=== PATIENT | male | born 1980 | race American Indian/Alaskan Native ===

== ENCOUNTER 2018-12-18 21:04 | Emergency (ER) | payer SELFPAY ==
--- NOTE | 2018-12-18 21:11 | Emergency Department Report ---
ED Chest Pain HPI - General Stated Complaint: CHEST PAIN Time Seen by Provider: 12/18/18 21:08 Source: patient, family, EMS Limitations: No Limitations - History of Present Illness Initial Comments: Mr. Garcia is a pleasant healthy 38 yo male who presents with severe sharp chest pain today 1-2 hours after eating. Sharp pain radiating to "my heart and left arm". +nausea/vomiting +dyspnea. Now with hiccups. Has Had "really bad heartburn" for a long while. Self-treats with baking soda. Mr. Garcia states, "I smoke reefer as much as I can." MD Complaint: chest pain -: Gradual, hour(s) (3) Onset: during rest Severity: severe Quality: sharp Consistency: constant Improves With: nothing Worsens With: nothing re: nausea, vomting, dyspnea Other Symptoms: burping. denies: cough, fever, syncope, rash, acid taste in mouth, leg swelling, palpitations - Related Data Previous Rx's Medication Instructions Recorded Last Taken Type Amoxicillin 2 tab PO BID 10 Days #40 capsule 12/18/18 Unknown Rx Clarithromycin 500 mg PO BID 10 Days #20 tablet 12/18/18 Unknown Rx Omeprazole 40 mg PO DAILY 30 Days #30 12/18/18 Unknown Rx capsule. Allergies Allergy/AdvReac Type Severity Reaction Status Date / Time No Known Allergies Allergy Unverified 12/18/18 21:21 Heart Score - HEART Score History: Slightly suspicious EKG: Normal Age: < 45 Risk factors: No known risk factors Troponin: < normal limit HEART Score: 0 ED Review of Systems ROS: Stated complaint: CHEST PAIN Other details as noted in HPI Comment: All other systems reviewed and negative Constitutional: denies: fever, malaise Respiratory: shortness of breath. denies: cough Cardiovascular: chest pain Gastrointestinal: nausea, vomiting ED Past Medical Hx - Past Medical History Previous Medical History?: No - Surgical History Past Surgical History?: No - Family History Family history: other (COPD no hx of CAD ) - Social History Smoking Status: Never Smoker Substance Use Type: Alcohol (social), Marijuana (daily) - Medications Home Medications: Home Medications Medication Instructions Recorded Confirmed Last Taken Type Amoxicillin 2 tab PO BID 10 Days #40 capsule 12/18/18 Unknown Rx Clarithromycin 500 mg PO BID 10 Days #20 tablet 12/18/18 Unknown Rx Omeprazole 40 mg PO DAILY 30 Days #30 12/18/18 Unknown Rx capsule. ED Physical Exam - General General appearance: alert, in no apparent distress, other (hiccups +vomiting constantly spitting up) - Head Head exam: Present: atraumatic, normocephalic - Eye Eye exam: Present: normal appearance - ENT ENT exam: Present: mucous membranes moist - Neck Neck exam: Present: normal inspection, full ROM. Absent: tenderness, meningismus - Respiratory Respiratory exam: Present: normal lung sounds bilaterally. Absent: respiratory distress, wheezes, rales, rhonchi - Cardiovascular Cardiovascular Exam: Present: regular rate, normal rhythm, normal heart sounds. Absent: systolic murmur, diastolic murmur, rubs, gallop - GI/Abdominal GI/Abdominal exam: Present: soft, normal bowel sounds. Absent: distended, tenderness, guarding, rebound - Rectal Rectal exam: Present: deferred - Extremities Exam Extremities exam: Present: normal inspection - Back Exam Back exam: Present: normal inspection - Neurological Exam Neurological exam: Present: alert, oriented X3 - Psychiatric Psychiatric exam: Present: normal affect, normal mood - Skin Skin exam: Present: warm, dry, intact, normal color. Absent: rash ED Course Vital Signs 12/18/18 12/18/18 12/18/18 21:06 21:15 21:16 Temperature 97.5 F L Pulse Rate 53 L 55 L Respiratory 17 11 L Rate Blood Pressure 146/89 O2 Sat by Pulse 100 100 Oximetry 12/18/18 12/18/18 12/18/18 21:29 21:48 22:00 Temperature Pulse Rate 59 L Respiratory 22 14 Rate Blood Pressure 146/89 127/74 O2 Sat by Pulse 100 100 Oximetry 12/18/18 12/18/18 12/18/18 22:16 22:30 22:45 Temperature Pulse Rate 61 58 L 57 L Respiratory 22 12 8 L Rate Blood Pressure 130/77 118/76 122/86 O2 Sat by Pulse 100 98 99 Oximetry 12/18/18 12/18/18 12/18/18 23:00 23:15 23:30 Temperature Pulse Rate 54 L 56 L 59 L Respiratory 12 14 15 Rate Blood Pressure 126/78 122/71 116/66 O2 Sat by Pulse 100 100 100 Oximetry ED Medical Decision Making - Lab Data Result diagrams: 12/18/18 21:47 12/18/18 21:47 Laboratory Results - last 24 hr 12/18/18 12/18/18 12/18/18 21:47 21:47 21:47 WBC 16.2 H RBC 4.87 Hgb 14.5 Hct 45.4 MCV 93 MCH 30 MCHC 32 RDW 14.3 Plt Count 250 Lymph % (Auto) 15.8 Evans % (Auto) 6.2 Eos % (Auto) 0.3 Baso % (Auto) 0.4 Lymph # 2.6 Evans # 1.0 H Eos # 0.1 Baso # 0.1 Seg Neutrophils % 77.3 H Seg Neutrophils # 12.5 H Sodium 139 Potassium 4.1 Chloride 103.8 Carbon Dioxide 24 Anion Gap 15 BUN 14 Creatinine 1.1 Estimated GFR > 60 BUN/Creatinine Ratio 13 Glucose 109 H Calcium 9.4 Troponin T < 0.010 Lipase 42 - EKG Data 12/18/18 21:14 EKG obtained 2110 Sinus bradycardia rate 50 bpm normal axis normal intervals no ST elevation no signs of ischemia or pericarditis - Radiology Data Radiology results: report reviewed Chest x-ray: No acute process - Medical Decision Making Mr. Garcia presents with chest pain, epigastric pain and belching. Strongly suspect severe esophagitis versus peptic ulcer disease. Prescribed triple H. pylori therapy with amoxicillin clarithromycin and omeprazole. He plans to obtain health insurance in 1 month. Consequently should be able to receive specialty care by head of digital. Referred to outpatient physician and GI specialist. He did inform me that his mother had such severe reflux that she required Hunter procedure. Elevated WBC nonspecific without PNA, peritonitis, esophageal rupture. Critical care attestation.: If time is entered above; I have spent that time in minutes in the direct care of this critically ill patient, excluding procedure time. ED Disposition Clinical Impression: GERD (gastroesophageal reflux disease), PUD (peptic ulcer disease) Disposition: DC-01 TO HOME OR SELFCARE Is pt being admited?: No Does the pt Need Aspirin: No Condition: Stable Instructions: Diet for Ulcers and Gastritis (ED), Gastroesophageal Reflux Disease (ED) Prescriptions: Amoxicillin 2 tab PO BID 10 Days #40 capsule Clarithromycin 500 mg PO BID 10 Days #20 tablet Omeprazole 40 mg PO DAILY 30 Days #30 capsule.dr Forms: Work/School Release Form(ED)
[2018-12-18] MEDS ORDERED: ZOFRAN IV ONE (21:12)
[2018-12-18] MEDS ORDERED: MORPHINE IV ONE (21:12)
[2018-12-18] MEDS ORDERED: PEPCID IV ONE (21:12)
[2018-12-18 21:55] LABS: Basophils # (Auto) 0.1 K/mm3 (0.0-0.1); Basophils % (Auto) 0.4 % (0.0-1.8); Eosinophils # (Auto) 0.1 K/mm3 (0.0-0.4); Eosinophils % (Auto) 0.3 % (0.0-4.3); Hematocrit 45.4 % (35.5-45.6); Hemoglobin 14.5 gm/dl (11.8-15.2); Lymphocytes # (Auto) 2.6 K/mm3 (1.2-5.4); Lymphocytes % (Auto) 15.8 % (13.4-35.0); Mean Corpuscular HGB Conc 32 % (32-34); Mean Corpuscular Volume 93 fl (84-94); Monocytes % (Auto) 6.2 % (0.0-7.3); Platelet Count 250 K/mm3 (140-440); Red Blood Count 4.87 M/mm3 (3.65-5.03); Red Cell Distribution Width 14.3 % (13.2-15.2)
[2018-12-18 22:10] LABS: BUN/Creatinine Ratio 13; Blood Urea Nitrogen 14 mg/dL (9-20); Calcium 9.4 mg/dL (8.4-10.2); Hemolysis Index 16
--- NOTE | 2018-12-18 22:31 | XRay Report ---
FINAL REPORT PROCEDURE: XR CHEST 1V AP TECHNIQUE: Chest radiograph anteroposterior view. CPT 73723 HISTORY: Chest Pain COMPARISON: No prior studies are available for comparison. FINDINGS: Heart: Normal. Mediastinum/Vessels: Normal. Lungs/Pleural space: No infiltrate, effusion, or pneumothorax. Bony thorax: No acute osseous abnormality. Life support devices: None. IMPRESSION: No radiographic evidence of acute cardiopulmonary abnormality.
[2018-12-18 23:42] VITALS: BP 116/66
== END 2018-12-19 00:13 | disposition home or self-care (01) ==
LOC: ED 21:04
DX: K21.9 Gastro-esophageal reflux disease without esophagitis (principal); K27.9 Peptic ulcer, site unspecified, unspecified as acute or chronic, without hemorrhage or perforation; F12.10 Cannabis abuse, uncomplicated
CPT/HCPCS: 36415; 71045; 80048; 83690; 84484; 85025; 93005; 93010; 96374; 96375; 99284; J2270; J2405

== ENCOUNTER 2019-05-31 09:39 | Emergency (ER) | payer OTHER ==
[2019-05-31] MEDS ORDERED: MORPHINE IM ONE (10:04)
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
[2019-05-31] MEDS ORDERED: ULTRAM PO ONE (12:23)
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
[2019-05-31] MEDS ORDERED: IBUPROFEN PO ONE (16:55)
[2019-05-31 17:37] VITALS: BP 127/72
== END 2019-05-31 17:35 | disposition home or self-care (01) ==
LOC: ED 09:39
DX: M50.20 Other cervical disc displacement, unspecified cervical region (principal); J45.909 Unspecified asthma, uncomplicated; F12.10 Cannabis abuse, uncomplicated; Z79.899 Other long term (current) drug therapy; Z79.1 Long term (current) use of non-steroidal anti-inflammatories (NSAID); V47.5XXA Car driver injured in collision with fixed or stationary object in traffic accident, initial encounter; Y93.89 Activity, other specified; Y92.410 Unspecified street and highway as the place of occurrence of the external cause; Y99.8 Other external cause status
CPT/HCPCS: 70450; 71046; 72125; 72170; 96372; 99284; J2270

== ENCOUNTER 2019-11-04 07:27 | Emergency (ER) | payer MEDICAID, OTHER ==
[2019-11-04] MEDS ORDERED: ASPIRIN 325 MG TAB PO ONE (07:41)
--- NOTE | 2019-11-04 08:29 | XRay Report ---
CHEST 2 VIEWS INDICATION: Chest Pain. COMPARISON: 12/18/2018. FINDINGS: Support devices: None. Heart: Within normal limits. Lungs/Pleura: No acute air space or interstitial disease. No significant pleural effusion. IMPRESSION: No acute findings. Signer Name: Yunior Cox MD Signed: 11/04/2019 8:25 AM Workstation Name: [id number]
[2019-11-04] MEDS ORDERED: IBUPROFEN 800 MG TAB PO ONE (09:02)
[2019-11-04] MEDS ORDERED: predniSONE 20 MG TAB PO ONE (09:02)
[2019-11-04 09:05] VITALS: BP 104/69
--- NOTE | 2019-11-04 09:09 | Emergency Department Report ---
ED Fever HPI - General Chief Complaint: Chest Pain Stated Complaint: CHEST PAIN/BODY ACHES/DIZZY Time Seen by Provider: 11/04/19 08:57 - History of Present Illness Initial Comments: cc: "I caught the flu from my daughter." HPI: Mr. Garcia is a 39 yo male with hx of asthma and marijuana abuse who presents with fever, dry cough, body aches fro the past day. Daughter has been diagnosed with the flu. He wanted to come to the ED in order to prevent a severe asthma attack. No wheezing or shortness of breath. Denies chest pain. Timing/Duration: other (1) Fever Severity/Quality: greater than 102 F Associated Symptoms: cough, muscle aches ED Review of Systems ROS: Stated complaint: CHEST PAIN/BODY ACHES/DIZZY Other details as noted in HPI Comment: All other systems reviewed and negative Constitutional: chills, fever, malaise ENT: denies: ear pain, throat pain, congestion Respiratory: cough. denies: shortness of breath, wheezing Cardiovascular: denies: chest pain Gastrointestinal: nausea. denies: abdominal pain, vomiting Musculoskeletal: back pain ED Past Medical Hx - Past Medical History Previous Medical History?: Yes Hx Asthma: Yes - Surgical History Past Surgical History?: Yes Additional Surgical History: left shoulder - Family History Family history: asthma - Social History Smoking Status: Never Smoker Substance Use Type: Marijuana (4 times per day) - Medications Home Medications: Home Medications Medication Instructions Recorded Confirmed Last Taken Type Amoxicillin 2 tab PO BID 10 Days #40 capsule 12/18/18 Unknown Rx Clarithromycin 500 mg PO BID 10 Days #20 tablet 12/18/18 Unknown Rx Omeprazole 40 mg PO DAILY 30 Days #30 12/18/18 Unknown Rx capsule. Cyclobenzaprine HCl [Flexeril 5 MG 5 mg PO BID PRN #10 tab 05/31/19 Unknown Rx TAB] HYDROcodone/APAP 7.5-325 [[place] 1 each PO Q6HR PRN #15 tablet 05/31/19 Unknown Rx 7.5/325] Ibuprofen [Motrin] 800 mg PO Q8HR PRN #30 tablet 05/31/19 Unknown Rx predniSONE [Deltasone] 20 mg PO DAILY #15 tablet 05/31/19 Unknown Rx ALBUTEROL Inhaler (OR & NICU) 2 puff IH QID PRN #8.5 gram 11/04/19 Unknown Rx [ProAir HFA Inhaler] Oseltamivir [Tamiflu] 75 mg PO BID 5 Days #10 cap 11/04/19 Unknown Rx predniSONE [Deltasone] 3 tab PO QDAY 4 Days #12 tab 11/04/19 Unknown Rx ED Physical Exam - General Limitations: No Limitations General appearance: alert, in no apparent distress, other (appears nontoxic) - Head Head exam: Present: atraumatic, normocephalic - Eye Eye exam: Present: normal appearance. Absent: scleral icterus, conjunctival injection - ENT ENT exam: Present: mucous membranes moist. Absent: normal exam, normal orophraynx - Neck Neck exam: Present: normal inspection, full ROM. Absent: tenderness, meningismus - Respiratory Respiratory exam: Present: normal lung sounds bilaterally. Absent: respiratory distress, wheezes, rales, rhonchi - Cardiovascular Cardiovascular Exam: Present: regular rate, normal rhythm. Absent: systolic murmur, diastolic murmur, rubs, gallop - GI/Abdominal GI/Abdominal exam: Present: soft, normal bowel sounds. Absent: distended, tenderness, guarding, rebound - Rectal Rectal exam: Present: deferred - Extremities Exam Extremities exam: Present: normal inspection - Back Exam Back exam: Present: normal inspection, full ROM. Absent: tenderness, CVA tenderness (R), CVA tenderness (L), muscle spasm - Neurological Exam Neurological exam: Present: alert, oriented X3 - Psychiatric Psychiatric exam: Present: normal affect, normal mood - Skin Skin exam: Present: warm, dry, intact, normal color. Absent: rash ED Course Vital Signs 11/04/19 07:34 Temperature 101.1 F H Pulse Rate 99 H Respiratory 20 Rate Blood Pressure 95/48 O2 Sat by Pulse 98 Oximetry ED Medical Decision Making - Medical Decision Making Clinical diagnosis influenza: inital hypotension seen at triage not replicated. I do not suspect sepsis, shock, bacteremia rx: tamiflu, albuterol MDI, prednisone Critical care attestation.: If time is entered above; I have spent that time in minutes in the direct care of this critically ill patient, excluding procedure time. ED Disposition Clinical Impression: Influenza Disposition: DC-01 TO HOME OR SELFCARE Is pt being admited?: No Does the pt Need Aspirin: No Condition: Stable Instructions: Influenza (ED) Prescriptions: predniSONE [Deltasone] 3 tab PO QDAY 4 Days #12 tab ALBUTEROL Inhaler (OR & NICU) [ProAir HFA Inhaler] 2 puff IH QID PRN #8.5 gram PRN Reason: Shortness Of Breath Oseltamivir [Tamiflu] 75 mg PO BID 5 Days #10 cap Referrals: VON YI MD [Staff Physician] - 3-5 Days Forms: Work/School Release Form(ED)
== END 2019-11-04 09:17 | disposition home or self-care (01) ==
LOC: ED 07:27
DX: J11.1 Influenza due to unidentified influenza virus with other respiratory manifestations (principal); J45.909 Unspecified asthma, uncomplicated; F12.10 Cannabis abuse, uncomplicated; Z98.890 Other specified postprocedural states; Z79.1 Long term (current) use of non-steroidal anti-inflammatories (NSAID); Z79.2 Long term (current) use of antibiotics; Z79.899 Other long term (current) drug therapy
CPT/HCPCS: 71046; 93005; 93010; 99283; J7512

== ENCOUNTER 2020-06-12 17:15 | Emergency (ER) | payer MEDICAID ==
[2020-06-12 17:28] VITALS: BP 110/63
[2020-06-12] MEDS ORDERED: oxyCODONE /ACETAMINOPHEN 5-325MG TAB PO ONE (18:53)
[2020-06-12] MEDS ORDERED: DIPHtheria,PERTUSSIS(ACELL),TETANUS VACCINE/PF 0.5 ML VIAL IM ONE (18:53)
--- NOTE | 2020-06-12 19:29 | Emergency Department Report ---
- General Chief Complaint: Extremity Injury, Upper Stated Complaint: LEFT HAND FINGER CUT Time Seen by Provider: 06/12/20 18:31 Source: patient Mode of arrival: Ambulatory Limitations: No Limitations - History of Present Illness Initial Comments: pt is a 39 yo male who presents to the ED with c/o a laceration to the left hand that occurred just LO[employer]ANG[employer]. he states he was using a razor blade knife to cut something off of his lawnmower when it accidentally slipped and cut his hand. bleeding is controlled by gauze dressing and tape. he denies any numbness or weakness. he is able to move the digits. no pmhx. no allergies to meds. pt is unsure of last tetanus immunization - Related Data Previous Rx's Medication Instructions Recorded Last Taken Type Amoxicillin 2 tab PO BID 10 Days #40 capsule 12/18/18 Unknown Rx Clarithromycin 500 mg PO BID 10 Days #20 tablet 12/18/18 Unknown Rx Omeprazole 40 mg PO DAILY 30 Days #30 12/18/18 Unknown Rx capsule. Cyclobenzaprine HCl [Flexeril 5 MG 5 mg PO BID PRN #10 tab 05/31/19 Unknown Rx TAB] HYDROcodone/APAP 7.5-325 [[place] 1 each PO Q6HR PRN #15 tablet 05/31/19 Unknown Rx 7.5/325] Ibuprofen [Motrin] 800 mg PO Q8HR PRN #30 tablet 05/31/19 Unknown Rx predniSONE [Deltasone] 20 mg PO DAILY #15 tablet 05/31/19 Unknown Rx Albuterol Mdi (or & Nicu Only) 2 puff IH QID PRN #8.5 gram 11/04/19 Unknown Rx [ProAir HFA Inhaler] Oseltamivir [Tamiflu] 75 mg PO BID 5 Days #10 cap 11/04/19 Unknown Rx predniSONE [Deltasone] 3 tab PO QDAY 4 Days #12 tab 11/04/19 Unknown Rx Allergies Allergy/AdvReac Type Severity Reaction Status Date / Time No Known Allergies Allergy Unverified 12/18/18 21:21 ED Review of Systems ROS: Stated complaint: LEFT HAND FINGER CUT Other details as noted in HPI Comment: All other systems reviewed and negative ED Past Medical Hx - Past Medical History Previous Medical History?: Yes Hx Asthma: Yes - Surgical History Past Surgical History?: Yes Additional Surgical History: left shoulder - Social History Smoking Status: Never Smoker Substance Use Type: Alcohol - Medications Home Medications: Home Medications Medication Instructions Recorded Confirmed Last Taken Type Amoxicillin 2 tab PO BID 10 Days #40 capsule 12/18/18 Unknown Rx Clarithromycin 500 mg PO BID 10 Days #20 tablet 12/18/18 Unknown Rx Omeprazole 40 mg PO DAILY 30 Days #30 12/18/18 Unknown Rx capsule. Cyclobenzaprine HCl [Flexeril 5 MG 5 mg PO BID PRN #10 tab 05/31/19 Unknown Rx TAB] HYDROcodone/APAP 7.5-325 [[place] 1 each PO Q6HR PRN #15 tablet 05/31/19 Unknown Rx 7.5/325] Ibuprofen [Motrin] 800 mg PO Q8HR PRN #30 tablet 05/31/19 Unknown Rx predniSONE [Deltasone] 20 mg PO DAILY #15 tablet 05/31/19 Unknown Rx Albuterol Mdi (or & Nicu Only) 2 puff IH QID PRN #8.5 gram 11/04/19 Unknown Rx [ProAir HFA Inhaler] Oseltamivir [Tamiflu] 75 mg PO BID 5 Days #10 cap 11/04/19 Unknown Rx predniSONE [Deltasone] 3 tab PO QDAY 4 Days #12 tab 11/04/19 Unknown Rx ED Physical Exam - General Limitations: No Limitations General appearance: alert, in no apparent distress - Head Head exam: Present: atraumatic, normocephalic - Eye Eye exam: Present: normal appearance - ENT ENT exam: Present: mucous membranes moist - Extremities Exam Extremities exam: Present: other (3 cm laceration present over the thenar emminence, no muscle tendon involvement, no foreign body, FROM of the left wrist, hand, and digits, he has FROM of the thumb including flexion, extension, thumb opposition, abduction and adduction, no snuffbox ttp, neurovascularly intact) - Neurological Exam Neurological exam: Present: alert, oriented X3 - Psychiatric Psychiatric exam: Present: normal affect, normal mood - Skin Skin exam: Present: warm, dry ED Course Vital Signs 06/12/20 17:26 Temperature 98.2 F Pulse Rate 78 Respiratory 20 Rate Blood Pressure 110/63 O2 Sat by Pulse 98 Oximetry ED Medical Decision Making - Medical Decision Making pt is a 39 yo male who presents to the ED with c/o a laceration to the left hand that occurred just [employer]ANG[employer]. he states he was using a razor blade knife to cut something off of his lawnmower when it accidentally slipped and cut his hand. bleeding is controlled by gauze dressing and tape. he denies any numbness or weakness. he is able to move the digits. no pmhx. no allergies to meds. pt is unsure of last tetanus immunization. vitals are normal. on exam: 3 cm laceration present over the thenar emminence, no muscle tendon involvement, no foreign body, FROM of the left wrist, hand, and digits, he has FROM of the thumb including flexion, extension, thumb opposition, abduction and adduction, no snuffbox ttp, neurovascularly intact. advised pt that we would give him a tetanus immunization and pain medication and thoroughly clean his wound and perform a laceration repair. pt was agreeable to plan. I was then advised by nurse that pt eloped from the emergency department prior to receiving medications and he did not have a full evaluation, did not have his wound cleaned, and did not have a laceration repair. Critical care attestation.: If time is entered above; I have spent that time in minutes in the direct care of this critically ill patient, excluding procedure time. ED Disposition Clinical Impression: Hand laceration Qualifiers: Encounter type: initial encounter Foreign body presence: unspecified Laterality: left Qualified Code(s): S61.412A - Laceration without foreign body of left hand, initial encounter Disposition: ELOPED Is pt being admited?: No Does the pt Need Aspirin: No Condition: Stable Referrals: PRIMARY CARE, [Primary Care Provider] - 3-5 Days
== END 2020-06-12 20:40 | disposition left against medical advice (07) ==
LOC: ED 17:15
DX: M79.642 Pain in left hand (principal); Z53.21 Procedure and treatment not carried out due to patient leaving prior to being seen by health care provider
CPT/HCPCS: 90715